=== PATIENT | male | born 1980 | race Caucasian/White ===

== ENCOUNTER 2016-09-02 14:00 | Inpatient (IN) | payer OTHER ==
[2016-09-02 14:30] VITALS: BMI 27.3
--- NOTE | 2016-09-02 14:52 | HP ---
Admission ROS [facility] Chief Complaint: I am here for rehab. [facility] Allergies/Adverse Reactions: Allergies Allergy/AdvReac Type Severity Reaction Status Date / Time Fish Containing Products Allergy Intermediate Hives Verified 09/02/16 14:33 History of Present Illness: pt is a 36yr old male with a history heroin and alcohol dependence seeking rehab for treatment. Exam Limitations: No Limitations - Ebola screening Have you traveled outside of the country in the last 21 days: No Have you had contact with anyone from an Ebola affected area: No Have you been sick,other than usual withdrawal symptoms: No Do you have a fever: No - Review of Systems Constitutional: Chills, Diaphoresis, Loss of Appetite, Night Sweats, Unintentional Wgt. Loss EENT: reports: No Symptoms Reported Respiratory: reports: No Symptoms reported Cardiac: reports: No Symptoms Reported GI: reports: Diarrhea, Poor Appetite, Poor Fluid Intake, Indigestion : reports: No Symptoms Reported Musculoskeletal: reports: No Symptoms Reported, Joint Stiffness (knee pain both) Integumentary: reports: No Symptoms Reported Neuro: reports: No Symptoms reported, Seizure (last seizure 5yrs ago) Endocrine: reports: No Symptoms Reported Hematology: reports: No Symptoms Reported Psychiatric: reports: Judgement Intact, Mood/Affect Appropiate, Orientated x3, Agitated, Anxious Other Systems: Reviewed and Negative Patient History - Patient Medical History Hx Anemia: No Hx Asthma: No Hx Chronic Obstructive Pulmonary Disease (COPD): No Hx Cancer: No Hx Cardiac Disorders: No Hx Congestive Heart Failure: No Hx Hypertension: No Hx Hypercholesterolemia: No Hx Pacemaker: No HX Cerebrovascular Accident: No Hx Seizures: No Hx Diabetes: No Hx Gastrointestinal Disorders: No Hx Liver Disease: No Hx Genitourinary Disorders: No Hx Sexually Transmitted Disorders: No Hx Renal Disease (ESRD): No Hx Thyroid Disease: No Hx Human Immunodeficiency Virus (HIV): No (NEGATIVE HX 10/01 LAST) Hx Hepatitis C: No Hx Depression: No Hx Suicide Attempt: No (denies) Hx Bipolar Disorder: No Hx Schizophrenia: No Other Medical History: insomnia - Patient Surgical History Past Surgical History: No Hx Neurologic Surgery: No Hx Cataract Extraction: No Hx Cardiac Surgery: No Hx Lung Surgery: No Hx Breast Surgery: No Hx Breast Biopsy: No Hx Abdominal Surgery: No Hx Appendectomy: No Hx Cholecystectomy: No Hx Genitourinary Surgery: No Hx Section: No Hx Orthopedic Surgery: No Anesthesia Reaction: No - PPD History Previous Implant?: Yes Documented Results: Positive w/o proof - Reproductive History Patient is a Female of Child Bearing Age (11 -55 yrs old): No - Smoking Cessation Smoking history: Current every day smoker Have you smoked in the past 12 months: Yes Aproximately how many cigarettes per day: 20 Hx Chewing Tobacco Use: No Initiated information on smoking cessation: Yes 'Breaking Loose' booklet given: 09/02/16 - Substance & Tx. History Hx Alcohol Use: Yes Hx Substance Use: Yes Substance Use Type: Alcohol, Heroin Hx Substance Use Treatment: Yes Family Disease History - Family Disease History Family Disease History: Diabetes: Mother (HTN; ON MMTP; WAS ADDICTED TO ETOH AND DRUGS BEFORE), Heart Disease: Mother, Other: Father (ETOH AND DRUGS DEPENDENT AND ) Admission Physical Exam S - Vital Signs Vital Signs: Vital Signs - 24 hr 09/02/16 14:28 Temperature 96.4 F L Pulse Rate 70 Respiratory 18 Rate Blood Pressure 120/80 - Physical General Appearance: Yes: Appropriately Dressed, Moderate Distress, Irritable, Sweating, Anxious HEENTM: Yes: Within Normal Limits, Normal Voice Respiratory: Yes: Lungs Clear, Normal Breath Sounds, No Respiratory Distress Neck: Yes: No masses,lesions,Nodules Breast: Yes: Within Normal Limits Cardiology: Yes: Regular Rhythm, Regular Rate, S1, S2 Abdominal: Yes: Normal Bowel Sounds, Non Tender, Soft Genitourinary: Yes: Within Normal Limits Back: Yes: Normal Inspection Musculoskeletal: Yes: full range of Motion Extremities: Yes: Normal Capillary Refill, Normal Inspection, Non-Tender, Tremors 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: Yes: Fully Oriented, Alert, Normal Response Integumentary: Yes: Normal Color, Diaphoresis Lymphatic: Yes: Within Normal Limits - Diagnostic (1) Alcohol abuse, in remission Current Visit: No Status: Chronic (2) Heroin use disorder, moderate, in early remission, dependence Current Visit: No Status: Chronic (3) GERD (gastroesophageal reflux disease) Current Visit: Yes Status: Chronic Qualifiers: Esophagitis presence: without esophagitis Qualified Code(s): K21.9 - Gastro-esophageal reflux disease without esophagitis (4) Nicotine dependence Current Visit: Yes Status: Chronic Qualifiers: Nicotine product type: cigarettes Substance use status: uncomplicated Qualified Code(s): F17.210 - Nicotine dependence, cigarettes, uncomplicated (5) Positive PPD Current Visit: Yes Status: Chronic (6) Weight loss Current Visit: Yes Status: Acute Cleared for Admission [facility] - Detox or Rehab [facility] Level of Care: Medically Managed Claeared for Rehab Admission: Yes [facility] Breath Alcohol Content Breath Alcohol Content: 0 Urine Drug Screen - Results Drug Screen Negative: No Urine Drug Screen Results: BZO-Benzodiazepines, MTD-Methadone
[2016-09-02] MEDS ORDERED: MENTHOL/PHENOL 1 EACH UD MM PRN (14:57)
[2016-09-02] MEDS ORDERED: P-EPHED 60MG/TRIPROLIDI 2.5MG TABLET PO PRN (14:57)
[2016-09-02] MEDS ORDERED: MAGNESIUM CITRATE 300 ML BOTTLE PO PRN (14:57)
[2016-09-02] MEDS ORDERED: LOPERAMIDE HCL 2 MG CAPSULE PO PRN (14:57)
[2016-09-02] MEDS ORDERED: MAGNESIUM HYDROX 2400MG/30ML ORAL SUSPENSION 30 ML CUP PO PRN (14:57)
[2016-09-02] MEDS ORDERED: guaiFENesin/D-METHORPHAN HB 10 ML UNIT-DOSE CUPS PO PRN (14:57)
[2016-09-02] MEDS ORDERED: diphenhydrAMINE HCL 50 MG CAPSULE PO PRN (14:57)
[2016-09-02] MEDS ORDERED: MAG HYDROX/AL HYDROX/SIMETH 30 ML UNIT-DOSE CUP PO PRN (14:57)
[2016-09-02 20:16] LABS: ALBUMIN 4.3 g/dl (3.4-5.0); ANION GAP 6 (8-16); CALCIUM 9.7 mg/dL (8.5-10.1); CO2 30 mmol/L (21-32); GLUCOSE,RANDOM 106 mg/dL (74-106); SGOT/AST 20 U/L (15-37); SGPT/ALT 24 U/L (12-78)
[2016-09-02 20:18] LABS: ALK PHOS 100 U/L (45-117); BILIRUBIN,TOTAL 0.3 mg/dL (0.2-1.0); CREATININE 1.1 mg/dL (0.7-1.3); TOT PROT 7.3 g/dl (6.4-8.2)
[2016-09-02 20:22] LABS: URINE APPEARANCE CLEAR; URINE BILIRUBIN NEGATIVE (NEGATIVE); URINE BLOOD NEGATIVE (NEGATIVE); URINE COLOR LTYELLOW; URINE GLUCOSE (UA) NEGATIVE (NEGATIVE); URINE KETONE NEGATIVE (NEGATIVE); URINE LEUK ESTERASE NEGATIVE (NEGATIVE); URINE NITRITE NEGATIVE (NEGATIVE); URINE PROTEIN NEGATIVE (NEGATIVE); URINE UROBILINOGEN NEGATIVE E.U./dl (0.2-1.0)
[2016-09-02 20:23] LABS: MCH 29.6 pg (25.7-33.7); MCHC 33.7 g/dl (32.0-35.9); MEAN CELL VOLUME 87.8 fl (80-96); MEAN PLT VOLUME 9.3 fl (7.5-11.1); PLATELET COUNT 189 K/MM3 (134-434); RDW 13.8 % (11.9-15.9); WHITE BLOOD COUNT 9.5 K/mm3 (4.0-10.0)
[2016-09-02] MEDS: THIAMINE HCL 100 MG TABLET (FP) PO SCH (21:33)
[2016-09-03] MEDS: PRENATAL VITAMINS W/ FOLIC ACID TABLET (FP) PO SCH (10:17)
[2016-09-03] MEDS: NICOTINE 21 MG/24 HOURS TOPICAL PATCH TD SCH (10:17)
[2016-09-03] MEDS: NICOTINE POLACRILEX 4 MG GUM BC PRN ×4 (10:19→21:49)
[2016-09-03 11:27] LABS: HIV 1 & 2 AB NEGATIVE; HIV 1 AGp24 NEGATIVE
[2016-09-03] MEDS ORDERED: cloNIDine HCL 0.1 MG TABLET PO ONE (12:21)
--- NOTE | 2016-09-03 14:34 | HP ---
Psychiatrist Admission - Data Date of interview: 09/03/16 Admission source: [facility] Identifying data: This is the third [facility] admission (first was 2002) for this 36 year old single male residing with his mother in her [facility] apartment. Medical History: History of alcohol-related seizures, smokes cigarettes 1PPD. Psychiatric History: Patient admits to being diagnosed with " depression and anxiety ".No longer on methadone maintenance at [facility] program (160 mg/ day).Stopped on his own volition, while [facility] was treated with seroquel for insomnia and gabapentin for anxiety, reports he had abnormal involuntary movements in the form of sudden jerks of lower extremities and hestopped seroquel. States while at [facility] treated with Trazodone 100 mg po hs, still difficulty sleeping and requested to increase to 150 mg po hs, also patient showed interest to restart neurontin. Reports no history of psychiatric hospitalizations.No history of suicide attempts. Physical/Sexual Abuse/Trauma History: Denies history of abuse. Additional Comment: the longest period of abstinence was 1 year while he lived in [place]. Vital Signs: Vital Signs - 24 hr 09/03/16 09/03/16 09/03/16 00:54 03:30 06:42 Temperature 97.5 F L Pulse Rate 62 Respiratory 18 18 18 Rate Blood Pressure 126/70 Allergies/Adverse Reactions: Allergies Allergy/AdvReac Type Severity Reaction Status Date / Time Fish Containing Products Allergy Intermediate Hives Verified 09/02/16 14:33 Date of last physical exam: 09/02/16 Concur with the findings of this exam: Yes - Substance Abuse/Tx History Hx Alcohol Use: Yes Hx Substance Use: Yes Substance Use Type: Alcohol, Cocaine (injecting $40 daily use), Heroin (8-12 bags injecting daily use) Hx Substance Use Treatment: Yes ([facility]) - Admission Criteria Previous failed treatment: Yes Poor recovery environment: Yes Comorbidities: Yes Lacks judgement: Yes Mental Status Exam - Mental Status Exam Alert and Oriented to: Time, Place, Person Cognitive Function: Grossly Intact Patient Appearance: Well Groomed Mood: Sad, Anxious Affect: Appropriate, Mood Congruent Patient Behavior: Appropriate, Cooperative Speech Pattern: Clear, Appropriate Voice Loudness: Normal Thought Process: Intact, Goal Oriented Thought Disorder: Not Present Hallucinations: Denies Suicidal Ideation: Denies Homicidal Ideation: Denies Insight/Judgement: Fair Sleep: Poorly, Difficulty falling asleep Appetite: Fair Muscle strength/Tone: Normal Gait/Station: Normal Psychiatric Findings - Problem List ([place] 1, 2,3) (1) GERD (gastroesophageal reflux disease) Current Visit: Yes Status: Chronic Qualifiers: Esophagitis presence: without esophagitis Qualified Code(s): K21.9 - Gastro-esophageal reflux disease without esophagitis (2) Nicotine dependence Current Visit: Yes Status: Chronic Qualifiers: Nicotine product type: cigarettes Substance use status: uncomplicated Qualified Code(s): F17.210 - Nicotine dependence, cigarettes, uncomplicated (3) Alcohol dependence Current Visit: Yes Status: Acute (4) Cocaine dependence Current Visit: Yes Status: Acute (5) Opioid dependence Current Visit: Yes Status: Acute (6) Drug-induced anxiety disorder Current Visit: Yes Status: Acute (7) Drug induced sleep disorder Current Visit: Yes Status: Acute - Initial Treatment Plan Initial Treatment Plan: discussed with the patient indications/properties of Trazodone and Neurontin, will restart medication, adjust medications when needed , continue to monitor progress as needed.
[2016-09-03] MEDS: hydrOXYzine PAMOATE 50 MG CAPSULE (FP) PO PRN (15:26)
--- NOTE | 2016-09-03 17:05 | EKG ---
Test Reason : Blood Pressure : / mmHG Vent. Rate : 070 BPM Atrial Rate : 070 BPM P-R Int : 190 ms QRS Dur : 112 ms QT Int : 400 ms P-R-T Axes : 083 052 057 degrees QTc Int : 432 ms NORMAL SINUS RHYTHM INCOMPLETE RIGHT BUNDLE BRANCH BLOCK BORDERLINE ECG NO PREVIOUS ECGS AVAILABLE Confirmed by AMY ROLLINS, VITOR ([id number]) on 09/03/2016 5:04:56 PM Referred By: Divya Staples Confirmed By:VITOR REYES MD
[2016-09-03] MEDS: GABAPENTIN 100 MG CAPSULE (FP) PO SCH (21:48)
[2016-09-03] MEDS: cloNIDine HCL 0.1 MG TABLET PO SCH (21:48)
[2016-09-03] MEDS: THIAMINE HCL 100 MG TABLET (FP) PO SCH (21:48)
[2016-09-03] MEDS ORDERED: traZODone HCL 50 MG TABLET (FP) PO SCH (22:00)
[2016-09-04] MEDS: hydrOXYzine PAMOATE 50 MG CAPSULE (FP) PO PRN ×3 (06:19→14:12)
[2016-09-04] MEDS: IBUPROFEN 400 MG TABLET (FP) PO PRN ×2 (06:19→14:12)
[2016-09-04] MEDS: GABAPENTIN 100 MG CAPSULE (FP) PO SCH ×2 (06:21→14:12)
[2016-09-04] MEDS: NICOTINE POLACRILEX 4 MG GUM BC PRN ×5 (06:21→21:45)
[2016-09-04] MEDS: PRENATAL VITAMINS W/ FOLIC ACID TABLET (FP) PO SCH (10:23)
[2016-09-04] MEDS: cloNIDine HCL 0.1 MG TABLET PO SCH ×2 (10:23→21:43)
[2016-09-04] MEDS: ACETAMINOPHEN 325 MG TABLET (FP) PO PRN (10:23)
[2016-09-04] MEDS: NICOTINE 21 MG/24 HOURS TOPICAL PATCH TD SCH (10:24)
--- NOTE | 2016-09-04 15:16 | PN ---
Psychiatric Progress Note Vital Signs: Vital Signs Period Temp Pulse Resp BP Sys/Medrano Pulse Ox Last 24 Hr 98.1 F 61-97 18-18 130-132/79-80 Date of Session: 09/04/16 Chief Complaint:: progress update HPI: patient is addressing alcohol, opioid, cocaine , nicotine dependence comorbid substance induced anxiety and sleep disorder. ROS: wnl Current Medications: Active Medications Generic Name Dose Route Start Last Admin Trade Name Freq PRN Reason Stop Dose Admin Acetaminophen 650 mg 09/02/16 14:57 09/04/16 10:23 Tylenol - PO 650 mg Q4H PRN Administration PAIN Al Hydroxide/Mg Hydroxide 30 ml 09/02/16 14:57 Mylanta Oral Suspension - PO Q6H PRN DYSPEPSIA Clonidine 0.1 mg 09/04/16 22:00 Catapres - PO TID MESFIN Cyclobenzaprine HCl 10 mg 09/04/16 15:00 Flexeril - PO TID MESFIN Diphenhydramine HCl 50 mg 09/04/16 14:55 Benadryl - PO HS PRN INSOMNIA Eucalyptus/Menthol/Phenol/Sorbitol 1 each 09/02/16 14:57 Cepastat Lozenge - MM Q4H PRN SORE THROAT Gabapentin 100 mg 09/03/16 22:00 09/04/16 14:12 Neurontin - PO 100 mg TID MESFIN Administration Guaifenesin 10 ml 09/02/16 14:57 Robitussin Dm - PO Q6H PRN COUGH Hydroxyzine Pamoate 50 mg 09/02/16 14:57 09/04/16 14:12 Vistaril - PO 50 mg Q4H PRN Administration AGITATION Loperamide HCl 4 mg 09/02/16 14:57 Imodium - PO Q6H PRN DIARRHEA Magnesium Citrate 300 ml 09/02/16 14:57 Citroma - PO Q48H PRN CONSTIPATION Magnesium Hydroxide 30 ml 09/02/16 14:57 Milk Of Magnesia - PO DAILY PRN CONSTIPATION Naproxen 500 mg 09/04/16 22:00 Naprosyn - PO BID MESFIN Nicotine 21 mg 09/03/16 10:00 09/04/16 10:24 Nicoderm Patch - TD Not Given DAILY MESFIN Nicotine Polacrilex 4 mg 09/02/16 14:57 09/04/16 14:14 Nicorette Gum - BC 4 mg Q2H PRN Administration NICOTINE REPLACEMENT RX Multivit/Folic Acid/Iron 1 tab 09/03/16 10:00 09/04/16 10:23 Vitamins ([facility]) - PO 1 tab DAILY MESFIN Administration Pseudoephedrine/Triprolidine 1 combo 09/02/16 14:57 Actifed - PO TID PRN NASAL CONGESTION Thiamine HCl 100 mg 09/02/16 22:00 09/03/16 21:48 Vitamin B1 - PO 100 mg HS MESFIN Administration Trazodone HCl 150 mg 09/03/16 22:00 09/03/16 22:27 Desyrel - PO 150 mg HS MESFIN Administration Current Side Effect: No Lab tests ordered: No Lab tests reviewed: Yes Provider note:: Patient having difficult time to adjust to theunit, he reports having body aches, crayiving and not sleeping well, reports he understands the importance to stay in this treatment and he will make any efforts to continue it. Patient was encouraged to take PRN vistaril and all other medications which MD recommended, discussed indications and properties of Remeron, patient agreed to switch from Trazodone to Remeron. Will start remeron, increase trazodone and continue to monitor rpogress. Total face to face time:: 30 Mental Status Exam - Mental Status Exam Alert and Oriented to: Time, Place, Person Cognitive Function: Grossly Intact Patient Appearance: Well Groomed Mood: Sad, Anxious Affect: Appropriate, Mood Congruent Patient Behavior: Appropriate, Cooperative Speech Pattern: Clear, Appropriate Voice Loudness: Normal Thought Process: Intact, Goal Oriented Thought Disorder: Not Present Hallucinations: Denies Suicidal Ideation: Denies Homicidal Ideation: Denies Insight/Judgement: Fair Sleep: Poorly, Difficulty falling asleep Appetite: Fair Muscle strength/Tone: Normal Gait/Station: Normal Psychiatric Treatment Plan - Problem List (1) GERD (gastroesophageal reflux disease) Current Visit: Yes Qualifiers: Esophagitis presence: without esophagitis Qualified Code(s): K21.9 - Gastro-esophageal reflux disease without esophagitis (2) Nicotine dependence Current Visit: Yes Qualifiers: Nicotine product type: cigarettes Substance use status: uncomplicated Qualified Code(s): F17.210 - Nicotine dependence, cigarettes, uncomplicated (3) Alcohol dependence Current Visit: Yes (4) Cocaine dependence Current Visit: Yes (5) Opioid dependence Current Visit: Yes (6) Drug-induced anxiety disorder Current Visit: Yes (7) Drug induced sleep disorder Current Visit: Yes
[2016-09-04] MEDS: CYCLOBENZAPRINE HCL 10 MG TABLET (FP) PO SCH ×2 (16:05→21:43)
[2016-09-04] MEDS: NAPROXEN 500 MG TABLET (FP) PO SCH (21:43)
[2016-09-04] MEDS: GABAPENTIN 300 MG CAPSULE (FP) PO SCH (21:43)
[2016-09-04] MEDS: THIAMINE HCL 100 MG TABLET (FP) PO SCH (21:43)
[2016-09-04] MEDS ORDERED: MIRTAZAPINE 15 MG TABLET (FP) PO SCH (22:00)
[2016-09-04] MEDS: diphenhydrAMINE HCL 50 MG CAPSULE PO PRN (23:28)
[2016-09-05] MEDS: ACETAMINOPHEN 325 MG TABLET (FP) PO PRN (01:22)
[2016-09-05] MEDS: diphenhydrAMINE HCL 50 MG CAPSULE PO PRN (01:23)
[2016-09-05] MEDS: CYCLOBENZAPRINE HCL 10 MG TABLET (FP) PO SCH ×2 (06:33→14:11)
[2016-09-05] MEDS: cloNIDine HCL 0.1 MG TABLET PO SCH ×2 (06:33→14:11)
[2016-09-05] MEDS: GABAPENTIN 300 MG CAPSULE (FP) PO SCH ×2 (06:33→14:11)
[2016-09-05 07:24] VITALS: TEMP 98.3
[2016-09-05 09:03] VITALS: BP 131/80; PULSE 70
[2016-09-05] MEDS: PRENATAL VITAMINS W/ FOLIC ACID TABLET (FP) PO SCH (09:57)
[2016-09-05] MEDS: NAPROXEN 500 MG TABLET (FP) PO SCH (09:57)
[2016-09-05] MEDS: NICOTINE 21 MG/24 HOURS TOPICAL PATCH TD SCH (09:58)
[2016-09-05] MEDS: hydrOXYzine PAMOATE 50 MG CAPSULE (FP) PO PRN (10:56)
== END 2016-09-05 16:00 | disposition left against medical advice (07) | DRG 770 ==
LOC: YASAS 14:00 → Y5N 15:53
PROVIDERS: ADMIT Psychiatry & Neurology Psychiatry; ATTEND Psychiatry & Neurology Psychiatry
PROC: HZ42ZZZ Group Counseling for Substance Abuse Treatment, Cognitive-Behavioral (ICD-10-PCS; principal; 2016-09-02)
DX: F11.20 Opioid dependence, uncomplicated (principal); F10.20 Alcohol dependence, uncomplicated; F14.20 Cocaine dependence, uncomplicated; F17.210 Nicotine dependence, cigarettes, uncomplicated; F19.280 Other psychoactive substance dependence with psychoactive substance-induced anxiety disorder; F19.282 Other psychoactive substance dependence with psychoactive substance-induced sleep disorder; K21.9 Gastro-esophageal reflux disease without esophagitis; R76.11 Nonspecific reaction to tuberculin skin test without active tuberculosis; Z87.898 Personal history of other specified conditions
CPT/HCPCS: 36415; 71020-TC; 80053; 81003; 85027; 86593; 87389; 93005; 93010

== ENCOUNTER 2017-05-14 14:50 | Inpatient (IN) | payer OTHER ==
[2017-05-14 16:38] VITALS: BMI 24.9
--- NOTE | 2017-05-14 19:20 | HP ---
Admission ROS [facility] - [facility] Chief Complaint: I WANT TO GO TO REHAB Allergies/Adverse Reactions: Allergies Allergy/AdvReac Type Severity Reaction Status Date / Time Fish Containing Products Allergy Intermediate Hives Verified 05/14/17 17:59 History of Present Illness: 37 YEARS OLD MALE WITH LONG HISTORY OF HEROIN NICOTINE DEPENDENCE HAS WEIGHT LOSS, POSITIVE PPD, AND DEPRESSION IS ADMITTED TO REHAB Exam Limitations: No Limitations - Ebola screening Have you traveled outside of the country in the last 21 days: No Have you had contact with anyone from an Ebola affected area: No Have you been sick,other than usual withdrawal symptoms: No Do you have a fever: No - Review of Systems Constitutional: Loss of Appetite, Changes in sleep, Unintentional Wgt. Loss, Unexplained wgt Loss EENT: reports: No Symptoms Reported Respiratory: reports: No Symptoms reported Cardiac: reports: No Symptoms Reported GI: reports: Poor Appetite : reports: No Symptoms Reported Musculoskeletal: reports: No Symptoms Reported Integumentary: reports: Change in Color (FORE ARMS) Neuro: reports: No Symptoms reported Endocrine: reports: No Symptoms Reported Hematology: reports: No Symptoms Reported Psychiatric: reports: Judgement Intact, Mood/Affect Appropiate, Orientated x3 Other Systems: Reviewed and Negative Patient History - Patient Medical History Hx Anemia: No Hx Asthma: No Hx Chronic Obstructive Pulmonary Disease (COPD): No Hx Cancer: No Hx Cardiac Disorders: No Hx Congestive Heart Failure: No Hx Hypertension: No Hx Hypercholesterolemia: No Hx Pacemaker: No HX Cerebrovascular Accident: No Hx Seizures: Yes (2013 RELATED TO ALCOHOL WITHDRAWAL ) Hx Dementia: No Hx Diabetes: No Hx Gastrointestinal Disorders: No Hx Liver Disease: No Hx Genitourinary Disorders: No Hx Sexually Transmitted Disorders: No Hx Renal Disease (ESRD): No Hx Thyroid Disease: No Hx Human Immunodeficiency Virus (HIV): No (NEGATIVE HX 10/01 LAST) Hx Hepatitis C: No Hx Depression: No Hx Suicide Attempt: No Hx Bipolar Disorder: No Hx Schizophrenia: No - Patient Surgical History Past Surgical History: No Hx Neurologic Surgery: No Hx Cataract Extraction: No Hx Cardiac Surgery: No Hx Lung Surgery: No Hx Breast Surgery: No Hx Breast Biopsy: No Hx Abdominal Surgery: No Hx Appendectomy: No Hx Cholecystectomy: No Hx Genitourinary Surgery: No Hx Orthopedic Surgery: No - PPD History Previous Implant?: Yes Documented Results: Positive w/o proof Implanted On Prior [facility] Admission?: No PPD to be Administered?: No - Smoking Cessation Smoking history: Current every day smoker Have you smoked in the past 12 months: Yes Aproximately how many cigarettes per day: 20 Cigars Per Day: 0 Hx Chewing Tobacco Use: No Initiated information on smoking cessation: Yes 'Breaking Loose' booklet given: 05/14/17 - Substance & Tx. History Hx Alcohol Use: No Hx Substance Use: Yes Substance Use Type: Cocaine, Heroin Hx Substance Use Treatment: Yes (08/2016 [facility] - Substances Abused Heroin Route: Injection Frequency: Daily Amount used: 12 BAGS Age of first use: 18 Date of Last Use: 05/14/17 Family Disease History - Family Disease History Family Disease History: Diabetes: Mother (HTN; ON MMTP; WAS ADDICTED TO ETOH AND DRUGS BEFORE), Heart Disease: Mother, Other: Father (ETOH AND DRUGS DEPENDENT AND ) Admission Physical Exam S - Vital Signs Vital Signs: Vital Signs - 24 hr 05/14/17 16:36 Temperature 96.8 F L Pulse Rate 66 Respiratory 20 Rate Blood Pressure 138/94 - Physical General Appearance: Yes: No Apparent Distress, Appropriately Dressed, Thin HEENTM: Yes: Hearing grossly Normal, Normal ENT Inspection, Normocephalic, Normal Voice Respiratory: Yes: Chest Non-Tender, Lungs Clear, Normal Breath Sounds, No Respiratory Distress, No Accessory Muscle Use Neck: Yes: Supple, Trachea in good position Breast: Yes: Breasts Symetrical Cardiology: Yes: Regular Rhythm, Regular Rate, S1, S2 Abdominal: Yes: Normal Bowel Sounds, Non Tender, Soft, Other Back: Yes: Normal Inspection Musculoskeletal: Yes: full range of Motion, Gait Steady Extremities: Yes: Normal Inspection, Normal Range of Motion, Non-Tender 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: Yes: Fully Oriented, Alert, Motor Strength 5/5, Normal Mood/Affect , Normal Response Integumentary: Yes: Warm, Track Barry Lymphatic: Yes: Within Normal Limits - Diagnostic (1) Nicotine dependence Current Visit: Yes Status: Acute Qualifiers: Nicotine product type: cigarettes Substance use status: in withdrawal Qualified Code(s): F17.213 - Nicotine dependence, cigarettes, with withdrawal (2) Positive PPD Current Visit: Yes Status: Resolved (3) Methadone maintenance therapy patient Current Visit: Yes Status: Chronic Comment: 40 MG VERIFICATIN PENDING (4) Opioid dependence with withdrawal Current Visit: Yes Status: Acute Cleared for Admission [facility] - Detox or Rehab [facility] Level of Care: Observation Bed Detox Regimen/Protocol: Not Applicable Claeared for Rehab Admission: Yes [facility] Breath Alcohol Content Breath Alcohol Content: 0 Urine Drug Screen - Results Drug Screen Negative: No Urine Drug Screen Results: TRUONG-Cocaine, OPI-Opiates, BZO-Benzodiazepines, MTD- Methadone Inpatient Rehab Admission - Initial Determination Are CD services needed?: Yes Not in need of hospitalization: Yes - Rehab Admission Criteria Previous failed treatment: Yes Poor recovery environment: Yes Comorbidities: Yes Lacks judgement: No Patient is meeting Inpatient Rehab admission criteria:: Yes
[2017-05-14] MEDS ORDERED: MENTHOL/PHENOL 1 EACH UD MM PRN (19:27)
[2017-05-14] MEDS ORDERED: MAGNESIUM CITRATE 300 ML BOTTLE PO PRN (19:27)
[2017-05-14] MEDS ORDERED: MAG HYDROX/AL HYDROX/SIMETH 30 ML UNIT-DOSE CUP PO PRN (19:27)
[2017-05-14] MEDS ORDERED: MAGNESIUM HYDROX 2400MG/30ML ORAL SUSPENSION 30 ML CUP PO PRN (19:27)
[2017-05-14] MEDS ORDERED: IBUPROFEN 400 MG TABLET (FP) PO PRN (19:27)
[2017-05-14] MEDS ORDERED: LOPERAMIDE HCL 2 MG CAPSULE PO PRN (19:27)
[2017-05-14] MEDS ORDERED: guaiFENesin/D-METHORPHAN HB 10 ML UNIT-DOSE CUPS PO PRN (19:27)
[2017-05-14] MEDS ORDERED: P-EPHED 60MG/TRIPROLIDI 2.5MG TABLET PO PRN (19:27)
[2017-05-14] MEDS ORDERED: diphenhydrAMINE HCL 50 MG CAPSULE PO PRN (19:27)
[2017-05-14] MEDS ORDERED: ACETAMINOPHEN 325 MG TABLET (FP) PO PRN (19:27)
[2017-05-14] MEDS ORDERED: THIAMINE HCL 100 MG TABLET (FP) PO SCH (22:00)
[2017-05-14] MEDS: NICOTINE POLACRILEX 4 MG GUM BUC PRN (22:33)
[2017-05-14 23:29] LABS: URINE APPEARANCE CLEAR; URINE BILIRUBIN NEGATIVE (NEGATIVE); URINE BLOOD NEGATIVE (NEGATIVE); URINE COLOR YELLOW; URINE GLUCOSE (UA) NEGATIVE (NEGATIVE); URINE KETONE NEGATIVE (NEGATIVE); URINE LEUK ESTERASE NEGATIVE (NEGATIVE); URINE NITRITE NEGATIVE (NEGATIVE); URINE PROTEIN NEGATIVE (NEGATIVE); URINE UROBILINOGEN NEGATIVE mg/dL (0.2-1.0)
[2017-05-15 07:13] VITALS: BP 132/69; PULSE 65; TEMP 98.4
[2017-05-15] MEDS ORDERED: METHADONE HCL 10 MG TABLET PO SCH (07:30)
[2017-05-15] MEDS: NICOTINE POLACRILEX 4 MG GUM BUC PRN (09:52)
[2017-05-15] MEDS ORDERED: NICOTINE 21 MG/24 HOURS TOPICAL PATCH TD SCH (10:00)
[2017-05-15] MEDS ORDERED: PRENATAL VITAMINS W/ FOLIC ACID TABLET (FP) PO SCH (10:00)
[2017-05-15 10:11] LABS: MCH 29.7 pg (25.7-33.7); MCHC 34.2 g/dl (32.0-35.9); MEAN PLT VOLUME 8.3 fl (7.5-11.1); PLATELET COUNT 220 K/MM3 (134-434); RDW 13.5 % (11.9-15.9); WHITE BLOOD COUNT 8.8 K/mm3 (4.0-10.0)
[2017-05-15 10:36] LABS: ALBUMIN 3.9 g/dl (3.4-5.0); ALK PHOS 101 U/L (45-117); ANION GAP 4 (8-16); BILIRUBIN,TOTAL 0.3 mg/dL (0.2-1.0); CALCIUM 9.3 mg/dL (8.5-10.1); CO2 31 mmol/L (21-32); CREATININE 1.1 mg/dL (0.7-1.3); GLUCOSE,RANDOM 93 mg/dL (74-106); SGOT/AST 13 U/L (15-37); SGPT/ALT 18 U/L (12-78); TOT PROT 7.8 g/dl (6.4-8.2)
[2017-05-15 12:18] LABS: HIV 1 & 2 AB NEGATIVE; HIV 1 AGp24 NEGATIVE
--- NOTE | 2017-05-15 13:06 | EKG ---
Test Reason : Blood Pressure : / mmHG Vent. Rate : 067 BPM Atrial Rate : 067 BPM P-R Int : 174 ms QRS Dur : 118 ms QT Int : 404 ms P-R-T Axes : 052 035 042 degrees QTc Int : 426 ms NORMAL SINUS RHYTHM NON-SPECIFIC INTRA-VENTRICULAR CONDUCTION DELAY Confirmed by CHRISTINE DANIELS MD ([id number]) on 05/15/2017 1:05:51 PM Referred By: Divya Staples Confirmed By:CHRISTINE DANIELS MD
--- NOTE | 2017-05-15 16:28 | PN ---
S Progress Note Note: CALLED BY NURSE STATED PATIENT DID NOT WANT TO COMPLETE TREATMENT,SIGNED RELEASE AMA,DID NOT WANT TO WAIT,PSYCHIATRIST THEATRICAL VARIETY AGENT NOTIFIED BY NURSE
== END 2017-05-15 14:45 | disposition left against medical advice (07) | DRG 770 ==
LOC: YASAS 14:50 → Y5N 18:49
PROVIDERS: ADMIT Psychiatry & Neurology Psychiatry; ATTEND Psychiatry & Neurology Psychiatry
PROC: HZ42ZZZ Group Counseling for Substance Abuse Treatment, Cognitive-Behavioral (ICD-10-PCS; principal; 2017-05-14)
DX: F11.23 Opioid dependence with withdrawal (principal); F17.213 Nicotine dependence, cigarettes, with withdrawal; R76.11 Nonspecific reaction to tuberculin skin test without active tuberculosis; Z86.69 Personal history of other diseases of the nervous system and sense organs
CPT/HCPCS: 36415; 80053; 81003; 85027; 86593; 87389; 93005; 93010

== ENCOUNTER 2019-02-06 16:50 | Inpatient (IN) | payer OTHER ==
[2019-02-06 19:48] VITALS: BMI 25.0
--- NOTE | 2019-02-06 20:35 | HP ---
COWS - Scale Resting Pulse: 1= HI 81-100 Sweatin= Chills/Flushing Restless Observation: 1= Difficult to Sit Still Pupil Size: 1= Pupils >than Normal Bone or Joint Aches: 2= Severe Diffuse Aches Runny Nose/ Eye Tearin= Runny Nose/Eyes GI Upset > 30mins: 1= Stomach Cramp Tremor Observation: 1= Tremor [place], Not Seen Yawning Observation: 1= 1-2x During Session Anxiety or Irritability: 1=Feels Anxious/Irritable Goose Flesh Skin: 0=Smooth Skin COWS Score: 12 CIWA Score Nausea/Vomitin Muscle Tremors: 2 Anxiety: 2 Agitation: 2 Paroxysmal Sweats: 2 Orientation: 0-Oriented Tacttile Disturbances: 0-None Auditory Disturbances: 0-None Visual Disturbances: 0-None Headache: 2-Mild CIWA-Ar Total Score: 12 - Admission Criteria OASAS Guidelines: Admission for Medically Managed Detox: Requires at least one of the followin. CIWA greater than 12 2. Seizures within the past 24 hours 3. Delirium tremens within the past 24 hours 4. Hallucinations within the past 24 hours 5. Acute intervention needed for co occurring medical disorder 6. Acute intervention needed for co occurring psychiatric disorder 7. Severe withdrawal that cannot be handled at a lower level of care (continued vomiting, continued diarrhea, abnormal vital signs) requiring intravenous medication and/or fluids 8. Patient presents the following: CIWA greater than 12 Admission Criteria Met: Admission criteria met Admission ROS [facility] Chief Complaint: heroin and alcohol detox 38 yo with no medical problems, on no meds, was last in detox 1 month ago at [facility], [facility]. Says he has never been in a methadone program, did not like Suboxone. Last here for detox 2 months ago. Says he would like to complete detox this time and go to rehab. Says he would like to see for depression and anxiety. Homeless- sleeps in the streets, does not work, no PCP heroin- 15 bags IV, fentanyl 10 bags/day; last OD 2 days ago alcohol- 3 pints/day, h/o one seizure when in long term. cocaine- $40/day DUR- no significant meds Allergies/Adverse Reactions: Allergies Allergy/AdvReac Type Severity Reaction Status Date / Time Fish Containing Products Allergy Intermediate Hives Verified 02/06/19 19:14 - Ebola screening Have you traveled outside of the country in the last 21 days: No (N) Have you had contact with anyone from an Ebola affected area: No Do you have a fever: No Patient History - Patient Medical History Hx Anemia: No Hx Asthma: No Hx Chronic Obstructive Pulmonary Disease (COPD): No Hx Cancer: No Hx Cardiac Disorders: No Hx Congestive Heart Failure: No Hx Hypertension: No Hx Hypercholesterolemia: No Hx Pacemaker: No HX Cerebrovascular Accident: No Hx Seizures: Yes Hx Dementia: No Hx Diabetes: No Hx Gastrointestinal Disorders: No Hx Liver Disease: No Hx Genitourinary Disorders: No Hx Sexually Transmitted Disorders: No Hx Renal Disease (ESRD): No Hx Thyroid Disease: No Hx Human Immunodeficiency Virus (HIV): No (NEGATIVE HX 10/01 LAST) Hx Hepatitis C: No Hx Depression: Yes Hx Suicide Attempt: No Hx Bipolar Disorder: No Hx Schizophrenia: No - Patient Surgical History Past Surgical History: No Hx Neurologic Surgery: No Hx Cataract Extraction: No Hx Cardiac Surgery: No Hx Lung Surgery: No Hx Breast Surgery: No Hx Breast Biopsy: No Hx Abdominal Surgery: No Hx Appendectomy: No Hx Cholecystectomy: No Hx Genitourinary Surgery: No Hx Section: No Hx Orthopedic Surgery: No Anesthesia Reaction: No - Smoking Cessation Smoking history: Current every day smoker Have you smoked in the past 12 months: Yes Aproximately how many cigarettes per day: 20 Cigars Per Day: 0 Hx Chewing Tobacco Use: No Initiated information on smoking cessation: Yes 'Breaking Loose' booklet given: 02/06/19 - Substance & Tx. History Substance Use Type: Alcohol, Cocaine, Heroin - Substances abused Alcohol Substance route: Oral Frequency: Daily Amount used: 3 PINTS ALCOHOL Age of first use: 15 Date of last use: 02/05/19 Cocaine Substance route: Smoking Frequency: Daily Amount used: $50 Age of first use: 16 Date of last use: 02/05/19 Heroin Substance route: Injection Frequency: Daily Amount used: 15 BAGS Age of first use: 18 Date of last use: 02/05/19 Other Other (specify): FENTANYL Substance route: Injection Frequency: Daily Amount used: 10 BAGS Age of first use: 35 Date of last use: 02/05/19 Family Disease History - Family Disease History Family Disease History: Diabetes: Mother (HTN; ON MMTP; WAS ADDICTED TO ETOH AND DRUGS BEFORE), Heart Disease: Mother, Other: Father (ETOH AND DRUGS DEPENDENT AND ) Admission Physical Exam BHS - Vital Signs Vital Signs: Vital Signs - 24 hr 02/06/19 19:13 Temperature 98.5 F Pulse Rate 66 Respiratory 18 Rate Blood Pressure 114/78 - Physical General Appearance: Yes: Disheveled, Mild Distress HEENTM: Yes: Within Normal Limits, Hearing grossly Normal, Normal Voice Respiratory: Yes: Within Normal Limits, Chest Non-Tender, Lungs Clear Neck: Yes: Within Normal Limits Cardiology: Yes: Within Normal Limits, Regular Rate Abdominal: Yes: Within Normal Limits Back: Yes: Within Normal Limits, Normal Inspection Musculoskeletal: Yes: Within Normal Limits, full range of Motion, Gait Steady Extremities: Yes: Within Normal Limits, Normal Capillary Refill, Normal Inspection 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: Yes: Within Normal Limits, 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 NML intact, Fully Oriented Integumentary: Yes: Within Normal Limits, Normal Color, Track Barry Lymphatic: Yes: Within Normal Limits - Diagnostic (1) Alcohol dependence Current Visit: No Status: Acute (2) Cocaine dependence Current Visit: No Status: Acute (3) Nicotine dependence Current Visit: No Status: Acute Qualifiers: Nicotine product type: cigarettes Substance use status: in withdrawal Qualified Code(s): F17.213 - Nicotine dependence, cigarettes, with withdrawal (4) Opioid dependence Current Visit: No Status: Acute Breathalyzer - Breathalyzer Breathalyzer: 0 Urine Drug Screen - Test Device Lot number: [id number] Expiration date: 10/13/20 - Control Is test valid?: Yes - Results Drug screen NEGATIVE: No Urine drug screen results: TRUONG-Cocaine, FEN-Fentanyl, MOP-Opiates Inpatient Rehab Admission - Rehab Decision to Admit Inpatient rehab admission?: No
[2019-02-06] MEDS ORDERED: MAG HYDROX/AL HYDROX/SIMETH 30 ML UNIT-DOSE CUP PO PRN (20:40)
[2019-02-06] MEDS ORDERED: hydrOXYzine PAMOATE 25 MG CAPSULE (FP) PO PRN (20:40)
[2019-02-06] MEDS ORDERED: METHOCARBAMOL 500 MG TABLET PO PRN (20:40)
[2019-02-06] MEDS ORDERED: cloNIDine HCL 0.1 MG TABLET PO PRN (20:40)
[2019-02-06] MEDS ORDERED: NALOXONE HCL 0.4 MG/ML VIAL IVPUSH PRN (20:40)
[2019-02-06] MEDS ORDERED: MAGNESIUM HYDROX 2400MG/30ML ORAL SUSPENSION 30 ML CUP PO PRN (20:40)
[2019-02-06] MEDS ORDERED: ACETAMINOPHEN 325 MG TABLET (FP) PO PRN ×2 (20:40)
[2019-02-06] MEDS ORDERED: IBUPROFEN 400 MG TABLET (FP) PO PRN (20:40)
[2019-02-06] MEDS ORDERED: chlordiazePOXIDE HCL 25 MG CAPSULE PO ONE (20:40)
[2019-02-06] MEDS ORDERED: MAGNESIUM CITRATE 300 ML BOTTLE PO PRN (20:40)
[2019-02-06] MEDS ORDERED: BISMUTH SUBSALICYLATE 524 MG/30 ML UD PO PRN (20:40)
[2019-02-06] MEDS ORDERED: chlordiazePOXIDE HCL 25 MG CAPSULE PO PRN (20:40)
[2019-02-06] MEDS ORDERED: ONDANSETRON *ODT* 4 MG TABLET SL PRN (20:40)
[2019-02-06] MEDS ORDERED: MENTHOL/PHENOL 1 EACH UD MM PRN (20:40)
[2019-02-06] MEDS ORDERED: MELATONIN 5 MG TABLETS PO PRN (20:40)
[2019-02-06] MEDS ORDERED: METHADONE HCL 10 MG TABLET (FOR DETOX USE ONLY) PO ONE ×2 (21:00→23:00)
[2019-02-06] MEDS ORDERED: THIAMINE HCL 100 MG TABLET (FP) PO SCH (22:00)
[2019-02-06] MEDS: chlordiazePOXIDE HCL 25 MG CAPSULE PO SCH (22:33)
[2019-02-06] MEDS: NICOTINE POLACRILEX 4 MG GUM BUC PRN (22:48)
[2019-02-07] MEDS: chlordiazePOXIDE HCL 25 MG CAPSULE PO SCH ×3 (05:13→16:55)
[2019-02-07 10:00] LABS: HEMATOCRIT 42.3 % (35.4-49); HEMOGLOBIN 14.3 GM/dL (11.7-16.9); MCH 29.3 pg (25.7-33.7); MCHC 33.7 g/dl (32.0-35.9); MEAN CELL VOLUME 86.8 fl (80-96); MEAN PLT VOLUME 8.4 fl (7.5-11.1); RBC 4.87 M/mm3 (4.00-5.60); RDW 14.3 % (11.9-15.9)
[2019-02-07] MEDS ORDERED: METHADONE HCL 10 MG TABLET (FOR DETOX USE ONLY) PO ONE (10:00)
[2019-02-07] MEDS ORDERED: PRENATAL VITAMINS W/ FOLIC ACID TABLET (FP) PO SCH (10:00)
[2019-02-07 10:29] LABS: ALBUMIN 3.3 g/dl (3.4-5.0); BILIRUBIN,TOTAL 0.4 mg/dL (0.2-1); BLOOD UREA NITROGEN 13.2 mg/dL (7-18); CALCIUM 8.9 mg/dL (8.5-10.1); TOT PROT 6.4 g/dl (6.4-8.2)
[2019-02-07 10:32] LABS: PLATELET COUNT 219 K/MM3 (134-434)
--- NOTE | 2019-02-07 15:28 | PN ---
[facility] CIWA - CIWA Score Nausea/Vomitin-No Nausea/No Vomiting Muscle Tremors: None Anxiety: 4-Mod. Anxious/Guarded Agitation: 2 Paroxysmal Sweats: 2 Orientation: 0-Oriented Tacttile Disturbances: 2-Mild Itch/Numbness/Burn Auditory Disturbances: 1-Very Mild Visual Disturbances: 2-Mild Sensitivity Headache: 0-None Present CIWA-Ar Total Score: 13 S COWS - Scale Resting Pulse: 0= OR 80 or Below Sweatin= Chills/Flushing Restless Observation: 1= Difficult to Sit Still Pupil Size: 0= Normal to Room Light Bone or Joint Aches: 2= Severe Diffuse Aches Runny Nose/ Eye Tearin= None GI Upset > 30mins: 0= None Tremor Observation of Outstretched Hands: 0= None Yawning Observation: 1= 1-2x During Session Anxiety or Irritability: 4=Extreme Anxiety Goose Flesh Skin: 3=Piloerection COWS Score: 12 S Progress Note (SOAP) Subjective: Anxious, Interrupted Sleep, Sweating, Body Aches. Objective: PATIENT A & O X 3, OBSERVED AMBULATING ON UNIT UNASSISTED. IN NO ACUTE DISTRESS. 02/07/19 15:27 Vital Signs Temperature 97.5 F L 02/07/19 09:23 Pulse Rate 73 02/07/19 09:23 Respiratory Rate 18 02/07/19 09:23 Blood Pressure 106/75 02/07/19 09:23 O2 Sat by Pulse Oximetry (%) Laboratory Tests 02/07/19 02/07/19 02/07/19 07:00 07:00 07:00 WBC 8.0 RBC 4.87 Hgb 14.3 Hct 42.3 MCV 86.8 MCH 29.3 MCHC 33.7 RDW 14.3 Plt Count 219 MPV 8.4 Sodium 141 Potassium 4.0 Chloride 106 Carbon Dioxide 29 Anion Gap 6 L BUN 13.2 Creatinine 1.0 Est GFR (CKD-EPI)AfAm 110.17 Est GFR (CKD-EPI)NonAf 95.05 Random Glucose 90 Calcium 8.9 Total Bilirubin 0.4 AST 85 H ALT 155 H Alkaline Phosphatase 99 Total Protein 6.4 Albumin 3.3 L RPR Titer Nonreactive LABS NOTED. Assessment: 02/07/19 15:27 WITHDRAWAL SYMPTOMS. ELEVATED AST, ALT LEVELS. Plan: CONTINUE DETOX. INCREASE DAILY PO WATER INTAKE. REPEAT AST, ALT LEVELS ORDERED FOR TOMORROW AM FOR ELEVATED ADMISSION LEVELS.
[2019-02-07] MEDS: NICOTINE POLACRILEX 4 MG GUM BUC PRN (16:57)
--- NOTE | 2019-02-07 17:19 | CONSULT ---
[facility] Psychiatric Consult - Data Date of interview: 02/07/19 Admission source: [facility] Identifying data: This is one of many admissions to [facility] for this 38 y/o male self-referred for detoxification (heroin, alcohol, cocaine). Patient is single without children, domiciled, unemployed and deprived of any source of income. Substance Abuse History: Confirmed by patient. Details in current [facility] report as follows : Smoking history: Current every day smoker. Have you smoked in the past 12 months: Yes. Aproximately how many cigarettes per day: 20. Cigars Per Day: 0. Hx Chewing Tobacco Use: No. Initiated information on smoking cessation : Yes. 'Breaking Loose' booklet given: 02/06/19. - Substance & Tx. History. Substance Use Type: Alcohol, Cocaine, Heroin. - Substances abused. Alcohol. Substance route: Oral. Frequency: Daily. Amount used: 3 PINTS ALCOHOL. Age of first use: 15. Date of last use: 02/05/19. Cocaine. Substance route: Smoking. Frequency: Daily. Amount used: $50. Age of first use: 16. Date of last use: 02/05/19. Heroin. Substance route: Injection. Frequency: Daily. Amount used: 15 BAGS. Age of first use: 18. Date of last use: 02/05/19. Other. Other (specify): FENTANYL. Substance route: Injection. Frequency: Daily. Amount used: 10 BAGS. Age of first use: 35. Date of last use: 02/05/19 Medical History: History of alcohol-related seizures. Psychiatric History: Patient admits to a history of one psychiatric hospitalization ([facility]). Diagnosed with MDD and Anxiety Disorder. Mr Malave used to be on methadone maintenance at [facility] program (160 mg/ day). Has stopped taking psychotropic medications. No OPD care. In this interview, the patient mentions one suicide attempt via overdose with pills ( date not recalled). Physical/Sexual Abuse/Trauma History: Patient declines to discuss this domain. Additional Comment: Urine drug screen results: TRUONG-Cocaine, FEN-Fentanyl, MOP- Opiates. Noted. Mental Status Exam - Mental Status Exam Alert and Oriented to: Time, Place, Person Cognitive Function: Good Patient Appearance: Unkempt, Disheveled Mood: Sad, Withdrawn, Anxious, Irritable Affect: Mood Congruent, Constricted Patient Behavior: Fatigued, Cooperative Speech Pattern: Clear, Appropriate Voice Loudness: Normal Thought Process: Goal Oriented Hallucinations: Denies Suicidal Ideation: Denies Homicidal Ideation: Denies Insight/Judgement: Poor Sleep: Poorly, Difficulty falling asleep (wants trazodone) Appetite: Good Muscle strength/Tone: Normal Gait/Station: Normal Psychiatric Findings - Problem List ([place] 1, 2,3) (1) Opioid dependence with withdrawal Current Visit: Yes Status: Acute (2) Alcohol dependence Current Visit: Yes Status: Chronic (3) Cocaine dependence Current Visit: Yes Status: Chronic (4) Nicotine dependence Current Visit: Yes Status: Chronic Qualifiers: Nicotine product type: cigarettes Substance use status: in withdrawal Qualified Code(s): F17.213 - Nicotine dependence, cigarettes, with withdrawal (5) Substance induced mood disorder Current Visit: Yes Status: Chronic (6) Insomnia Current Visit: Yes Status: Chronic (7) Non-compliance Current Visit: Yes Status: Chronic - Initial Treatment Plan Initial Treatment Plan: Psychoeducation. Sleep hygiene. Detoxification. Aa/NA meetings. Support. Trazodone 50 mg po hs. Ordered at patient's request. Mr Malave is made aware of risk of priapism. Gave his verbal consent to MD. Knight.
[2019-02-07 18:06] VITALS: BP 121/74; PULSE 54; TEMP 99
[2019-02-07] MEDS ORDERED: traZODone HCL 50 MG TABLET (FP) PO SCH (22:00)
[2019-02-07] MEDS ORDERED: chlordiazePOXIDE HCL 25 MG CAPSULE PO SCH (23:00)
[2019-02-08] MEDS ORDERED: METHADONE HCL 10 MG TABLET (FOR DETOX USE ONLY) PO ONE (10:00)
[2019-02-08] MEDS ORDERED: chlordiazePOXIDE HCL 10 MG CAPSULE PO PRN (23:00)
[2019-02-08] MEDS ORDERED: chlordiazePOXIDE HCL 10 MG CAPSULE PO SCH (23:00)
[2019-02-09] MEDS ORDERED: METHADONE HCL 10 MG TABLET (FOR DETOX USE ONLY) PO ONE (10:00)
[2019-02-09] MEDS ORDERED: chlordiazePOXIDE HCL 10 MG CAPSULE PO SCH (23:00)
[2019-02-10] MEDS ORDERED: METHADONE HCL 5 MG TABLET (FOR DETOX USE ONLY) PO ONE (06:00)
== END 2019-02-07 17:50 | disposition left against medical advice (07) | DRG 770 ==
LOC: YASAS 16:50 → Y3N 21:17
PROVIDERS: ADMIT Surgery; ATTEND Surgery
PROC: HZ2ZZZZ Detoxification Services for Substance Abuse Treatment (ICD-10-PCS; principal; 2019-02-06)
DX: F11.23 Opioid dependence with withdrawal (principal); F10.230 Alcohol dependence with withdrawal, uncomplicated; F14.20 Cocaine dependence, uncomplicated; F17.213 Nicotine dependence, cigarettes, with withdrawal; F19.24 Other psychoactive substance dependence with psychoactive substance-induced mood disorder; G47.00 Insomnia, unspecified; R94.5 Abnormal results of liver function studies; Z91.013 Allergy to seafood; Z91.19 Patient's noncompliance with other medical treatment and regimen
CPT/HCPCS: 36415; 80053; 85027; 86593; 87389

== ENCOUNTER 2019-05-17 12:57 | Inpatient (IN) | payer OTHER ==
[2019-05-17 16:48] VITALS: BMI 25.5
--- NOTE | 2019-05-17 18:21 | HP ---
CIWA Score - Admission Criteria OASAS Guidelines: Admission for Medically Managed Detox: Requires at least one of the followin. CIWA greater than 12 2. Seizures within the past 24 hours 3. Delirium tremens within the past 24 hours 4. Hallucinations within the past 24 hours 5. Acute intervention needed for co occurring medical disorder 6. Acute intervention needed for co occurring psychiatric disorder 7. Severe withdrawal that cannot be handled at a lower level of care (continued vomiting, continued diarrhea, abnormal vital signs) requiring intravenous medication and/or fluids 8. Admitting History and Physical - Smoking History Smoking history: Current every day smoker Have you smoked in the past 12 months: Yes Aproximately how many cigarettes per day: 20 - Alcohol/Substance Use Hx Alcohol Use: No Admission ROS S - HPI Chief Complaint: "Here for rehab to stop using alcohol and drugs" Allergies/Adverse Reactions: Allergies Allergy/AdvReac Type Severity Reaction Status Date / Time Fish Containing Products Allergy Intermediate Hives Verified 05/17/19 16:36 History of Present Illness: 39 yo presents w/ hx crack/cocaine and alcohol use disorder(in early remission) seeking admission to rehab. Was incarcerated x 8 days and released on 05/15, re-arrested on 05/16/19 and released Wednesday night. When released on Wednesday you used alcohol and heroin. Last used heroin today. Last drink was Wednesday. UTox: FEN/MOP/MTD/BZO PATT: 0.0 Heroin use began at age 18. Continues to use despite being on methadone. Currently on [facility] OTP. Current dose is methadone 30 mg PO Daily and was medicated today. Has been on MMTP x 30 days. Alcohol use began at age 16. Was drinking 2-3 pints cognac daily. 1 seizure r/t alcohol withdrawal in 2013. Multiple blackouts - last 2011. Multiple overdoses - last 05/16/19. Received Narcan (administered by Mother) and then treated in ED. Nicotine use began at age 15. Smokes 1 PPD. PMHx: Hx PPD+ (took meds); Hep C+; LBP; MHHx: Sadness/depression. Denies thoughts of harming self or others. Does not have a community MH provider. States was medicated w/ Paxil, lexapro, and neurontin, while in patient rehab i 2011. Has not been on meds in years SHx: Lives w/ mother. Unemployed. Denies current legal mandates. Patient Name: Gage Malave Date: 1980 Address: [address] [place] [id number] Sex: Male Rx Written Rx Dispensed Drug Quantity Days Supply Prescriber Name 05/11/2019 05/11/2019 chlordiazepoxide 25 mg capsule 18 3 Azalia Mario Patient Name: Gage Malave Date: 1980 Address: [place] [address] Sex: Male Rx Written Rx Dispensed Drug Quantity Days Supply Prescriber Name 05/03/2019 05/03/2019 chlordiazepoxide 25 mg capsule 8 2 Karma Rizzo MD 02/10/2019 02/11/2019 chlordiazepoxide 25 mg capsule 8 2 Josue Castellanos Search Terms: Gage Malave, 1980 Search Date: 05/17/2019 06:20:58 PM States Searched: [place], [place], [place], [place], [place], [place], [place] The Drug Utilization Report below displays the controlled substance prescriptions, if any, that were dispensed in the indicated state(s). The information displayed on this report is compiled from requests submitted to other states' PMPs, and accurately reflects the information as returned by them. Blank lau indicate data not provided by other state. This report was requested by: Piper Whitehead | Reference #: [id number] There are no results for the search terms that you entered. Exam Limitations: No Limitations - Ebola screening Have you traveled outside of the country in the last 21 days: No Have you had contact with anyone from an Ebola affected area: No Have you been sick,other than usual withdrawal symptoms: No Do you have a fever: No - Review of Systems Constitutional: Changes in sleep (Difficulty falling asleep.) EENT: reports: Blurred Vision, Dental Problems (Missing teeth. Chews and swallows ok), Other (Ringing in ears x 6 years) Respiratory: reports: No Symptoms reported Cardiac: reports: No Symptoms Reported GI: reports: Nausea : reports: No Symptoms Reported Musculoskeletal: reports: Back Pain (Chronic low back pain x 3-4 years. Triggered by sitting too long. Resolves w/ walking) Integumentary: reports: Other (athlete's foot (L) foot) Neuro: reports: Headache (Throbbing temporal headache "6"), Numbness ((L) foot @ toe area x 3 weeks), Seizure Endocrine: reports: Increased Thirst Hematology: reports: No Symptoms Reported Psychiatric: reports: Orientated x3, Anxious, Depressed (Denies thoughts of harming self or others) Patient History - Patient Medical History Hx Anemia: No Hx Asthma: No Hx Chronic Obstructive Pulmonary Disease (COPD): No Hx Cancer: No Hx Cardiac Disorders: No Hx Congestive Heart Failure: No Hx Hypertension: No Hx Hypercholesterolemia: No Hx Pacemaker: No HX Cerebrovascular Accident: No Hx Seizures: No Hx Dementia: No Hx Diabetes: No Hx Gastrointestinal Disorders: No Hx Liver Disease: No Hx Genitourinary Disorders: No Hx Sexually Transmitted Disorders: No Hx Renal Disease (ESRD): No Hx Thyroid Disease: No Hx Human Immunodeficiency Virus (HIV): No (NEGATIVE HX 10/01 LAST) Hx Hepatitis C: No Hx Depression: Yes Hx Suicide Attempt: No Hx Bipolar Disorder: No Hx Schizophrenia: No - Patient Surgical History Past Surgical History: No Hx Neurologic Surgery: No Hx Cataract Extraction: No Hx Cardiac Surgery: No Hx Lung Surgery: No Hx Breast Surgery: No Hx Breast Biopsy: No Hx Abdominal Surgery: No Hx Appendectomy: No Hx Cholecystectomy: No Hx Genitourinary Surgery: No Hx Section: No Hx Orthopedic Surgery: No Anesthesia Reaction: No - PPD History Previous Implant?: Yes (Hx PPD+) Documented Results: Positive w/o proof Implanted On Prior [facility] Admission?: Yes Date: 04/21/19 (States CXR report sent to [facility] from [place]) PPD to be Administered?: No - Smoking Cessation Smoking history: Current every day smoker Have you smoked in the past 12 months: Yes Aproximately how many cigarettes per day: 20 Cigars Per Day: 0 Hx Chewing Tobacco Use: No Initiated information on smoking cessation: Yes 'Breaking Loose' booklet given: 05/17/19 - Substance & Tx. History Hx Alcohol Use: Yes Hx Substance Use: Yes Substance Use Type: Alcohol, Cocaine, Heroin Hx Substance Use Treatment: Yes (detox, rehab, ) - Substances abused Alcohol Substance route: Oral Frequency: Daily Amount used: 2 to 3 pints of cognac Age of first use: 15 Date of last use: 05/15/19 Cocaine Substance route: Smoking Frequency: 1-2 times per week Amount used: 20 to 30 dollars Age of first use: 16 Date of last use: 05/16/19 Heroin Substance route: Injection Frequency: 1-3 times last 30 days Amount used: 1 bag Age of first use: 18 Date of last use: 03/14/19 Other Other (specify): FENTANYL Substance route: Injection Frequency: 3-6 times per week Amount used: between 3 to 6 bags Age of first use: 35 Date of last use: 05/17/19 Marijuana/Hashish Substance route: Smoking Frequency: 3-6 times per week Amount used: 10 dollars per week Age of first use: 15 Date of last use: 05/14/19 Admission Physical Exam S - Vital Signs Vital Signs: Vital Signs - 24 hr 05/17/19 16:38 Temperature 97.9 F Pulse Rate 90 Respiratory 16 Rate Blood Pressure 140/92 - Physical General Appearance: Yes: Nourished, Tremorous (Mild tremors), Anxious HEENTM: Yes: EOMI, Hearing grossly Normal, Normocephalic, Normal Voice, MARICRUZ, Pharynx Normal Respiratory: Yes: Lungs Clear (Pulse Ox = 98%), Normal Breath Sounds, No Respiratory Distress Neck: Yes: No masses,lesions,Nodules, Supple Breast: Yes: Breast Exam Deferred Cardiology: Yes: Regular Rhythm, Regular Rate (HR: 78), S1, S2 Abdominal: Yes: Non Tender, Flat, Soft, Increased Bowel Sounds Genitourinary: Yes: Within Normal Limits Back: Yes: Normal Inspection Musculoskeletal: Yes: full range of Motion, Gait Steady Extremities: Yes: Normal Capillary Refill, Tremors (Mild tremors w/ arms extended) 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: 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 intact, Fully Oriented, Alert, Motor Strength 5/5, Normal Response Integumentary: Yes: Normal Color, Dry, Warm, Rash (Mild flaky (R) great toe), Track Barry ((R) arm area w/o increased erythema or warmth), Other (Scratches on both wrists- closed.) Lymphatic: Yes: Within Normal Limits - Diagnostic (1) Constipation Current Visit: Yes Status: Chronic Qualifiers: Constipation type: unspecified constipation type Qualified Code(s): K59.00 - Constipation, unspecified (2) Tinea pedis Current Visit: Yes Status: Chronic Qualifiers: Laterality: bilateral Qualified Code(s): B35.3 - Tinea pedis (3) Alcohol use disorder, severe, in early remission Current Visit: Yes Status: Acute (4) Cocaine use disorder, mild, in early remission Current Visit: Yes Status: Acute (5) Opioid use disorder Current Visit: Yes Status: Chronic (6) GERD (gastroesophageal reflux disease) Current Visit: Yes Status: Chronic Qualifiers: Esophagitis presence: without esophagitis Qualified Code(s): K21.9 - Gastro -esophageal reflux disease without esophagitis (7) Methadone maintenance therapy patient Current Visit: Yes Status: Chronic Comment: 30 or 40 MG ? VERIFICATIN PENDING (8) History of positive PPD Current Visit: Yes Status: Chronic (9) History of low back pain Current Visit: Yes Status: Chronic (10) History of hepatitis C Current Visit: Yes Status: Chronic Cleared for Admission [facility] - Detox or Rehab Claeared for Rehab Admission: Yes Breathalyzer - Breathalyzer Breathalyzer: 0 Urine Drug Screen - Test Device Lot number: [id number] Expiration date: 01/13/21 - Control Is test valid?: Yes - Results Drug screen NEGATIVE: No Urine drug screen results: FEN-Fentanyl, MOP-Opiates, MTD-Methadone, BZO- Benzodiazepines Inpatient Rehab Admission - Rehab Decision to Admit Inpatient rehab admission?: Yes - Initial Determination Are CD services needed?: Yes Free of communicable disease: Yes Not in need of hospitalization: Yes - Rehab Admission Criteria Previous failed treatment: Yes Poor recovery environment: Yes Comorbidities: Yes Lacks judgement: Yes Patient is meeting Inpatient Rehab admission criteria:: Yes
[2019-05-17] MEDS ORDERED: MENTHOL/PHENOL 1 EACH UD MM PRN (19:01)
[2019-05-17] MEDS ORDERED: IBUPROFEN 400 MG TABLET (FP) PO PRN (19:01)
[2019-05-17] MEDS ORDERED: ACETAMINOPHEN 325 MG TABLET (FP) PO PRN (19:01)
[2019-05-17] MEDS ORDERED: guaiFENesin 200 MG/10 ML 10 ML UNIT-DOSE CUPS PO PRN (19:01)
[2019-05-17] MEDS ORDERED: MAGNESIUM CITRATE 300 ML BOTTLE PO PRN (19:01)
[2019-05-17] MEDS ORDERED: P-EPHED 60MG/TRIPROLIDI 2.5MG TABLET PO PRN (19:01)
[2019-05-17] MEDS ORDERED: LOPERAMIDE HCL 2 MG CAPSULE PO PRN (19:01)
[2019-05-17] MEDS ORDERED: MAGNESIUM HYDROX 2400MG/30ML ORAL SUSPENSION 30 ML CUP PO PRN (19:01)
[2019-05-17] MEDS ORDERED: hydrOXYzine PAMOATE 25 MG CAPSULE (FP) PO PRN (19:01)
[2019-05-17] MEDS ORDERED: MAG HYDROX/AL HYDROX/SIMETH 30 ML UNIT-DOSE CUP PO PRN (19:01)
[2019-05-17] MEDS: THIAMINE HCL 100 MG TABLET (FP) PO SCH (21:41)
[2019-05-17] MEDS ORDERED: PT OWN MED DRAWER 7, Y5N ONE (21:43)
[2019-05-17] MEDS: MELATONIN 5 MG TABLETS PO PRN (21:43)
[2019-05-17] MEDS: NICOTINE POLACRILEX 2 MG GUM BC PRN (21:43)
[2019-05-17] MEDS: BACITRACIN 15 GM TUBE TOPICAL OINTMENT TP SCH (21:44)
[2019-05-17] MEDS: TOLNAFTATE 1% CREAM 15 GM TUBE TP SCH (21:47)
[2019-05-17] MEDS ORDERED: traZODone HCL 50 MG TABLET (FP) PO ONE (22:00)
[2019-05-17 23:10] LABS: EPI CELLS 4.7 /HPF (0-5/HPF); HYALINE CASTS 46 /lpf (0-8); URINE APPEARANCE CLEAR; URINE BACTERIA 11.5 /hpf (NEGATIVE); URINE BILIRUBIN NEGATIVE (NEGATIVE); URINE COLOR YELLOW; URINE GLUCOSE (UA) NEGATIVE (NEGATIVE); URINE KETONE NEGATIVE (NEGATIVE); URINE LEUK ESTERASE NEGATIVE (NEGATIVE); URINE NITRITE NEGATIVE (NEGATIVE); URINE PROTEIN 1+ (NEGATIVE); URINE RBC 1 /hpf (0-4); URINE UROBILINOGEN 0.2 mg/dL (0.2-1.0); URINE WBC 1 /hpf (0-5)
[2019-05-18] MEDS: NICOTINE POLACRILEX 2 MG GUM BC PRN ×2 (07:18→21:51)
[2019-05-18] MEDS ORDERED: METHADONE HCL 10 MG TABLET PO ONE (07:45)
[2019-05-18] MEDS ORDERED: NICOTINE 21 MG/24 HOURS TOPICAL PATCH TD SCH (10:00)
[2019-05-18] MEDS ORDERED: PRENATAL VITAMINS W/ FOLIC ACID TABLET (FP) PO SCH (10:00)
--- NOTE | 2019-05-18 10:13 | PN ---
S Progress Note Note: Pt is enrolled at [facility] methadone program- he is being titrated up from 30mg yesterday by 10mg every day to 80mg on 05/22 onwards> ordered. Confirmed with the MAT program.
[2019-05-18] MEDS: TOLNAFTATE 1% CREAM 15 GM TUBE TP SCH ×2 (10:35→21:48)
[2019-05-18] MEDS: BACITRACIN 15 GM TUBE TOPICAL OINTMENT TP SCH ×2 (10:36→21:50)
[2019-05-18 10:54] LABS: HEMATOCRIT 38.9 % (35.4-49); HEMOGLOBIN 13.4 GM/dL (11.7-16.9); MCH 30.4 pg (25.7-33.7); MCHC 34.4 g/dl (32.0-35.9); MEAN CELL VOLUME 88.2 fl (80-96); MEAN PLT VOLUME 8.3 fl (7.5-11.1); PLATELET COUNT 181 K/MM3 (134-434); RBC 4.41 M/mm3 (4.00-5.60); RDW 13.1 % (11.9-15.9); WHITE BLOOD COUNT 6.2 K/mm3 (4.0-10.0)
[2019-05-18 10:56] LABS: ALBUMIN 3.3 g/dl (3.4-5.0); BILIRUBIN,TOTAL 0.4 mg/dL (0.2-1); BLOOD UREA NITROGEN 17.6 mg/dL (7-18); CALCIUM 8.5 mg/dL (8.5-10.1); CREATININE 1.1 mg/dL (0.55-1.3); POTASSIUM 4.1 mmol/L (3.5-5.1); TOT PROT 6.2 g/dl (6.4-8.2)
[2019-05-18] MEDS ORDERED: FLU VACCINE QUAD 60 MCG/0.5 ML (MDV 19-20) IM ONE (12:06)
--- NOTE | 2019-05-18 13:08 | CONSULT ---
[facility] Psychiatric Consult - Data Date of interview: 05/18/19 Admission source: [facility] Identifying data: Patient is a 39 year old male, without children, unemployed, homeles, and is not supported by financial assistance. This is one of multiple admissions for patient. Patient admitted to for opiate dependence. Substance Abuse History: Smoking Cessation. Smoking history: Current every day smoker. Have you smoked in the past 12 months: Yes. Aproximately how many cigarettes per day: 20. Cigars Per Day: 0. Hx Chewing Tobacco Use: No. Initiated information on smoking cessation: Yes. 'Breaking Loose' booklet given : 05/17/19. - Substance & Tx. History. Hx Alcohol Use: Yes. Hx Substance Use : Yes. Substance Use Type: Alcohol, Cocaine, Heroin. Hx Substance Use Treatment: Yes (detox, rehab, ). - Substances abused. Alcohol. Substance route: Oral. Frequency: Daily. Amount used: 2 to 3 pints of cognac. Age of first use: 15. Date of last use: 05/15/19. Cocaine. Substance route: Smoking. Frequency: 1-2 times per week. Amount used: 20 to 30 dollars. Age of first use: 16. Date of last use: 05/16/19. Heroin. Substance route: Injection. Frequency: 1-3 times last 30 days. Amount used: 1 bag. Age of first use: 18. Date of last use: 03/14/19. Other. Other (specify): FENTANYL. Substance route: Injection. Frequency: 3-6 times per week. Amount used: between 3 to 6 bags. Age of first use: 35. Date of last use: 05/17/19. Marijuana/Hashish. Substance route: Smoking. Frequency: 3-6 times per week. Amount used: 10 dollars per week. Age of first use: 15. Date of last use: 05/14/19 Medical History: Hx PPD+ ; Hep C+; LBP; Psychiatric History: Patient denies history of psychiatric hospitalizations and suicide attempt. Mr. Malave reports only seeing a psychiatrist when admitted to detox/rehab facilities. He reports past treatment with trazodone and seroquel. Reports abnormal involuntary movements in the form of sudden jerks of lower extremities when accepting seroquel and would prefer to accept trazodone for insomnia. At present patient reports stable mood. Patient was prescribed trazodone 50mg HS last night but reports sleeping too much and is requesting a decrease in dose. Physical/Sexual Abuse/Trauma History: denies. Mental Status Exam - Mental Status Exam Alert and Oriented to: Time, Place, Person Cognitive Function: Good Patient Appearance: Well Groomed Mood: Euthymic Affect: Mood Congruent Patient Behavior: Cooperative Speech Pattern: Appropriate Voice Loudness: Normal Thought Process: Goal Oriented Thought Disorder: Not Present Hallucinations: Denies Suicidal Ideation: Denies Homicidal Ideation: Denies Insight/Judgement: Poor Sleep: Fair Appetite: Fair Muscle strength/Tone: Normal Gait/Station: Normal Psychiatric Findings - Problem List (Bigfoot 1, 2,3) (1) Alcohol use disorder Current Visit: Yes Status: Acute (2) Cocaine use disorder Current Visit: Yes Status: Acute - Initial Treatment Plan Initial Treatment Plan: Psychoeducation provided. Rehab in progress. Will order Trazodone 25mg HS. Benefits and side effects discussed. Verbal consent given.
[2019-05-18] MEDS: THIAMINE HCL 100 MG TABLET (FP) PO SCH (21:48)
[2019-05-18] MEDS: MELATONIN 5 MG TABLETS PO PRN (21:50)
[2019-05-18] MEDS ORDERED: traZODone HCL 50 MG TABLET (FP) PO SCH (22:00)
[2019-05-19 06:48] VITALS: BP 140/88; PULSE 63; TEMP 98.4
[2019-05-19] MEDS ORDERED: METHADONE HCL 40 MG DISPERSABLE TABLET PO ONE (10:00)
--- NOTE | 2019-05-19 10:21 | DS ---
[facility] Rehab Discharge Summary - [facility] Rehab Discharge Summary Admission Date: 05/17/19 Discharge Date: 05/19/19 - History Present History: Alcohol dependence, Cocaine dependence, Opioid dependence Additional Comments: Patient decided to discontinue rehab. He refused to wait to be seen by this provider, the nurse, medical pathology teacher, or the counselor. Security was notified , who found the patient and assisted him in obtaining his belongings. Pertinent Past History: History of Present Illness: 39 yo presents w/ hx crack/cocaine and alcohol use disorder(in early remission) Was incarcerated x 8 days and released on 05/15, re-arrested on 05/16/19 and released Wednesday night. UTox: FEN/MOP/MTD/BZO PATT: 0.0 Heroin use began at age 18. Continues to use despite being on methadone. Currently on [facility] OTP. Current dose is methadone 30 mg PO Daily and was medicated today. Has been on MMTP x 30 days. Alcohol use began at age 16. Was drinking 2-3 pints cognac daily. 1 seizure r/t alcohol withdrawal in 2013. Multiple blackouts - last 2011. Multiple overdoses - last 05/16/19. Received Narcan (administered by Mother) and then treated in ED. Nicotine use began at age 15. Smokes 1 PPD. PMHx: Hx PPD+ (took meds); Hep C+; LBP; MHHx: Sadness/depression medicated w/ Paxil, lexapro, and neurontin, while in patient rehab 2011. Has not been on meds in years SHx: Lives w/ mother. Unemployed. Denies current legal mandates. - Discharge Physical Exam Vital Signs: Vital Signs Temperature 98.4 F 05/19/19 06:47 Pulse Rate 63 05/19/19 06:47 Respiratory Rate 18 05/19/19 06:47 Blood Pressure 140/88 05/19/19 06:47 O2 Sat by Pulse Oximetry (%) Pertinent Admission Physical Exam Findings: Unable to document physical exam, patient left without seeing the provider, nurse, counselor, or medical pathology teacher. - Treatment Discharge Condition: Discharge condition good (Patient did not have any acute, urgent or emergency medical problems that required immediate attention or medical intervention or prevented discharge. Patient did not see counselor to arrange for aftercare referral. Patient originally stated that he wanted a referral to long-term care, but did not stay to arrange it with his counselor.) Hospital Course: Patient met with his counselor for a psychosocial evaluation upon admission. He was adherent to his medication regimen. - Medication Discharge Medications: Ambulatory Orders NK [No Known Home Medication] 02/06/19 - Medication-Assisted Treatment (MAT) Medication-Assisted Treatment (MAT): No - Discharge Instructions Diet, activity, other medical instructions: Diet: unable to discuss with patient, left before meeting with this provider Activity: unable to discuss with patient, left before meeting with this provider Other medical instructions: unable to discuss with patient, left before meeting with this provider - AMA Did Patient Leave Against Medical Advice: No Additional Comments: Patient voluntarily left early of his own volition and refused to consult with clinical staff.
[2019-05-20] MEDS ORDERED: METHADONE HCL 10 MG TABLET PO ONE ×2 (10:00→10:08)
[2019-05-21] MEDS ORDERED: METHADONE HCL 10 MG TABLET PO ONE ×2 (10:00→10:09)
[2019-05-22] MEDS ORDERED: METHADONE HCL 10 MG TABLET PO ONE (10:00)
[2019-05-23] MEDS ORDERED: METHADONE HCL 40 MG DISPERSABLE TABLET PO SCH (06:00)
== END 2019-05-19 08:40 | disposition home or self-care (01) | DRG 772 ==
LOC: YASAS 12:57 → Y3W 20:19
PROVIDERS: ADMIT Neuromusculoskeletal Medicine & OMM; ATTEND Neuromusculoskeletal Medicine & OMM
PROC: HZ42ZZZ Group Counseling for Substance Abuse Treatment, Cognitive-Behavioral (ICD-10-PCS; principal; 2019-05-17)
DX: F10.20 Alcohol dependence, uncomplicated (principal); F11.20 Opioid dependence, uncomplicated; F14.20 Cocaine dependence, uncomplicated; F12.10 Cannabis abuse, uncomplicated; F17.210 Nicotine dependence, cigarettes, uncomplicated; M54.5 Low back pain; G89.29 Other chronic pain; B18.2 Chronic viral hepatitis C; K21.9 Gastro-esophageal reflux disease without esophagitis; K59.00 Constipation, unspecified; B35.3 Tinea pedis; R76.11 Nonspecific reaction to tuberculin skin test without active tuberculosis; Z91.013 Allergy to seafood
CPT/HCPCS: 36415; 80053; 81003; 85027; 86593; 87389